=== PATIENT | female | born 1955 | race Caucasian/White ===

== ENCOUNTER → 2018-05-08 | Outpatient (CLI) | payer OTHER ==
[~2018-05-08] VITALS: Ht 172.7 cm; Wt 104.8 kg
[~2018-05-08] MED LIST: ALLEGRA ALLERG180 MG PO; AMBEREN; ASPIRIN81 M2 PO; BENICAR HCT 401 EACH; BIOTIN2500 MCG PO; CALCITRIOL0.5 MCG; CIPROFLOXACIN500 M1 PO; CITRACAL + D E1 EACH; CO Q-1010 MG PO; COZAAR 25 MG TA25 M2 PO; EPINEPHRIN0.3 MG/0.1 IM; IBUPROFEN 600600 M1 PO; LOSARTAN-HCTZ1 EAC2 PO; LUTEIN10 MG PO; MACRODANTIN50 MG PO; MULTI VITAMIN1 EACH PO; NEXIUM40 MG; OCUVITE LUTEIN1 EAC2 PO; PANTOPRAZOLE SO40 M1; PEPCID20 MG PO; PERCOCET 5-3251 EACH PO; PREDNISONE 10 M10 MG PO; PREMARIN0.3 MG; PROAIR HFA8.5 GM INH; VENTOLIN HFA 1818 GM INH; VITAMIN D 5050000 I1; ZOFRAN ODT4 MG PO; ZYRTEC10 M2 PO; [UNRECOGNIZED DRUG - OTHER] PO
--- NOTE | ~2018-05-08 | P ---
[facility] [place] [address] PROCEDURE REPORT Name: MIS JUNIOR [id number] Admission: 05/08/18 Attend Phys: Yonatan Acosta MD Discharge: Date of : 55 Report #: [id number] THIS REPORT FOR: //name// CC: Yonatan De Souza MD OUTPATIENT FLEXIBLE SIGMOIDOSCOPY REPORT BRIEF HISTORY: The patient is a 62-year-old woman with history of recurrent rectal bleeding. She had a colonoscopy in December this year. There was a question of colitis and biopsy revealed normal mucosa. She has had further rectal bleeding. CT showed some thickening of the sigmoid colon. She has noted increasing blood and mucus per rectum. SHE HAD A REACTION TO THE SULFITE and was placed on steroids and noted that her GI symptoms improved transiently. She has also had problems with constipation. PREOPERATIVE DIAGNOSES: Rectal bleeding and abnormal CT of the sigmoid colon with thickening. POSTOPERATIVE DIAGNOSES: 1. Multiple benign-appearing ulcers, rectum, anal verge. 2. Mild proctosigmoiditis. MEDICATIONS: Deep sedation with propofol per anesthesia. SPECIMENS: 1. Biopsies of sigmoid. 2. Biopsies of rectum. 3. Biopsies also of anal verge. ESTIMATED BLOOD LOSS: 3 mL. PROCEDURE: Flexible sigmoidoscopy to descending colon with biopsy. FINDINGS: Prior to propofol sedation, the procedure of flexible sigmoidoscopy was discussed with the patient as well as potential risks and its complications. She indicates she understands and desires to proceed. DESCRIPTION OF PROCEDURE: With the patient in the left lateral decubitus position, digital examination was completed, which revealed some irregularity of the anal canal. Subsequently, the Olympus video colonoscope was introduced through the rectum, advanced under direct vision. The prep was fair. However, we were able to see a good amount of mucosa in multiple areas, and therefore, we were able to achieve our objectives today. The scope was advanced into the descending colon and the mucosa in the descending colon was normal, with normal vascular pattern and normal light reflex. As we withdrew the scope, she was [facility] [address] [address] PROCEDURE REPORT Name: MIS JUNIOR MEDEROS Room #: REG KWADWO Weaver#: [id number] Admission: 05/08/18 Attend Phys: Yonatan Acosta MD Discharge: Date of : 55 Report #: [id number] noted to have loss of vascularity and patchy areas of erythema and occasional tiny erosions. Multiple biopsies were obtained. This pattern was somewhat more prominent in the rectum, but overall, the mucosa was intact. There was more erythema and loss of vascularity and again occasional erosion was seen. A discrete also was not seen. Also, might point out there were scattered diverticular sigmoid colon. Multiple rectal biopsies were obtained as well. The scope was withdrawn into the distal rectum and upon retroflexion, multiple stellate ulcers were seen, essentially at the anal verge. They had white exudate in the base and were clean. They had a benign appearance. Multiple biopsies were obtained. The scope was withdrawn and the patient tolerated the procedure well. CONDITION OF THE PATIENT UPON DISCHARGE: Following the procedure, the patient is drowsy, arousable and conversant. She will be discharged home when fully ambulatory. INSTRUCTIONS TO THE PATIENT AND FAMILY AT THE TIME OF DISCHARGE: Findings of proctosigmoiditis with ulcerations at the level of the anal verge. It is noted she had a colonoscopy in December of this year and ulcers were not present. Mucosa changes were noted, but biopsy revealed normal mucosa. We will follow up on biopsies obtained today. She had a recent reaction to mesalamine suppositories. Therefore, we will use hydrocortisone enemas and hydrocortisone suppositories. We will also give her Novocaine for pain. She has had some constipation and advised her to use MiraLax as needed for the constipation. We will have her return to see me in followup in the office in about 6 weeks. <ELECTRONICALLY SIGNED> By: Yonatan Acosta MD 05/09/18 1648 [id number] [id number] Yonatan Acosta MD /nt
--- NOTE | ~2018-05-08 | PATH ---
[facility] [place] [address] PATHOLOGY RPT PROCEDURE Name: ELMA DE LA VEGA Room #: REG KWADWO Anshu.#: [id number] Admission: 05/08/18 Date of : 55 Discharge: Report #: [id number] Path Case #: [id number] [facility] Accession Number: [id number] . 01 Material submitted: . PART A: BX OF SIGMOID COLON, RECTAL BLEEDING R/O COLITIS PART B: BX OF RECTUM, RECTAL BLEEDING R/O COLITIS PART C: BX OF ANAL VERGE ULCER . 01 Clinical history: . Rectal bleeding, rectal ulcers, Proctitis . 02 Diagnosis: A. Large intestinal mucosa, sigmoid colon rule out colitis, endoscopic biopsy: - Mild to moderate active colitis (please see comment). - Negative for dysplasia or malignancy. . B. Large intestinal mucosa, rectum rule out colitis, endoscopic biopsy: - Moderate active colitis. - Negative for dysplasia or malignancy. . C. Large intestinal mucosa, anal verge ulcers, endoscopic biopsy: - Marked active colitis associated with architectural abnormalities and ulceration (please see comment). - Negative for dysplasia or malignancy. LBQ/05/09/2018 . 02 Comment: The "sigmoid colon mucosal biopsy tissue shows a poorly formed collection of epithelioid histiocytes resembling granuloma. There is cryptitis present and the process involves all the fragments with a similar intensity in this biopsy tissue. The rectal biopsy tissue on the other hand shows numerous crypt abscesses, a markedly cellular lamina propria in addition to cryptitis. There are no granulomata present in this biopsy tissue. The anal verge ulcers show marked ulceration, cryptitis, architectural abnormalities in addition to the above findings described. Overall, findings may be suggestive of an inflammatory bowel disease. Other less likely possibilities include acute diverticulitis, acute infectious-type of colitis as well as drug induced colitis which would show diffuse involvement. Clinical correlation is required. There is no dysplasia or malignancy present. (IUV/db; 05/09/18) . 02 Electronically signed: . Latoya Sheldon MD, Pathologist NPI- [id number] [place] [address] PATHOLOGY RPT PROCEDURE Name: ELMA DE LA VEGA Room #: REG KWADWO Weaver#: [id number] Admission: 05/08/18 Date of : 55 Discharge: Report #: [id number] Path Case #: [id number] . 01 Gross description: . A.The specimen is received in formalin, labeled "Elma De La Vega, BX of sigmoid colon-bleeding rule out colitis", are several díaz soft tissues measuring 1.0 x 0.7 x 0.1 cm in aggregate, entirely submitted in A1. . B.The specimen is received in formalin, labeled "Elma De La Vega, BX of rectum, rectal bleeding, rule out colitis", are several díaz soft tissues are several díaz soft tissues measuring 1.0 x 0.4 x 0.1 cm in aggregate, entirely submitted in B1. . C.The specimen is received in formalin, labeled "Elma De La Vega, BX of ulcers at anal verge", are several díaz soft tissues measuring 1.0 x 0.4 x 0.1 cm in aggregate. The specimen is entirely submitted in C1. ([facility]; 05/08/2018) SHS/SHS . 02 Pathologist provided ICD-10: K52.9, K62.89, K62.6 . 02 CPT . 273014, 716530, 543434 Specimen Comment: A courtesy copy of this report has been sent to Specimen Comment: [phone], . Specimen Comment: Report sent to / DR JUAREZ Specimen Comment: A duplicate report has been generated due to demographic updates. Performed at: [address], [place], [place] [id number] MD Lincoln De Paz MD Phone: [phone] Performed at: [address] [id number] MD Latoya Sheldon MD Phone: [phone]
== END | disposition home or self-care (01) ==
LOC: GI 07:05
DX: K51.311 Ulcerative (chronic) rectosigmoiditis with rectal bleeding (principal); K52.9 Noninfective gastroenteritis and colitis, unspecified; K62.89 Other specified diseases of anus and rectum; I10 Essential (primary) hypertension; K21.9 Gastro-esophageal reflux disease without esophagitis; J45.909 Unspecified asthma, uncomplicated; Z90.710 Acquired absence of both cervix and uterus; Z90.49 Acquired absence of other specified parts of digestive tract; Z98.890 Other specified postprocedural states; Z79.899 Other long term (current) drug therapy; Z88.0 Allergy status to penicillin; Z91.040 Latex allergy status; Z88.8 Allergy status to other drugs, medicaments and biological substances
CPT/HCPCS: 62110; 62900

== ENCOUNTER 2018-11-06 09:01 | Inpatient (IN) | payer OTHER ==
[~2018-11-06] VITALS: Ht 172.7 cm; Wt 111.6 kg
[2018-11-06 09:02] VITALS: BP 125/77
[2018-11-06 09:23] LABS: ABSOLUTE NEUTROPHILS 6.5 thou/uL (1.4-8.2); BASOPHILS 0.3 % (0.0-2.0); EOSINOPHILS 1.2 % (0.0-3.0); HEMATOCRIT 41.5 % (37.0-47.0); HEMOGLOBIN 13.9 gm/dL (12.0-15.0); LYMPHOCYTES 13.8 % (24.0-44.0); MCH 30.3 pg (26.0-34.0); MCHC 33.6 g/dL (28.0-37.0); MCV 90.1 fL (80.0-100.0); MONOCYTES 7.5 % (1.0-8.0); PLATELET COUNT 261 thou/uL (150-400); POLYS 77.2 % (36.0-66.0); RDW 14.3 % (10.5-14.5); WBC 8.5 thou/uL (4.0-11.0)
[2018-11-06 10:01] LABS: CALCIUM 8.6 mg/dL (8.5-10.1); CREATININE 0.9 mg/dL (0.6-1.0); POTASSIUM 4.1 mmol/L (3.5-5.1)
[2018-11-06 10:03] LABS: ALBUMIN 3.8 g/dL (3.4-5.0); TOTAL BILIRUBIN 0.7 mg/dL (<0.1-1.0); TOTAL PROTEIN 7.4 g/dL (6.4-8.2)
[2018-11-06 10:46] LABS: URINE BILIRUBIN NEGATIVE (Negative); URINE BLOOD TRACE (Negative); URINE CLARITY CLEAR; URINE COLOR YELLOW; URINE GLUCOSE-RANDOM* NEGATIVE (Negative); URINE KETONES NEGATIVE (Negative); URINE LEUKOCYTES-REFLEX TRACE (Negative); URINE NITRITE-REFLEX NEGATIVE (Negative); URINE PROTEIN (DIPSTICK) NEGATIVE (Negative); URINE SPECIFIC GRAVITY 1.025 (1.005-1.035); URINE UROBILINOGEN 0.2 E.U./dl (0.2-1.0)
[2018-11-06 15:52] VITALS: BP 105/49
[2018-11-06 15:54] VITALS: BP 111/63
[2018-11-06 16:33] VITALS: BP 119/67
[2018-11-06 19:43] VITALS: BP 125/68
--- NOTE | 2018-11-07 00:49 | NUR ---
PT WAS LETHARGIC FROM MEDS RECEIVED FROM ER AT START OF SHIFT.FALL PRECAUTIONS ACTIVATED FOR PT'S SAFETY,PT INFORMED AND WAS IN AGREEMENT.ORDER NOTED FOR FLEX SIG IN THE MORNING,PT NOTIFIED.PT NPO AT THIS TIME,CONSENT SIGNED.PT DENIED PAIN/N/V SO FAR.PT SLEEPING ON HER BED AT THIS TIME.CALL LIGHT WITHIN REACH.
[2018-11-07 03:48] VITALS: BP 117/69
[2018-11-07 04:45] LABS: HEMATOCRIT 40.8 % (37.0-47.0); HEMOGLOBIN 13.7 gm/dL (12.0-15.0); MCH 30.6 pg (26.0-34.0); MCHC 33.5 g/dL (28.0-37.0); MCV 91.3 fL (80.0-100.0); RBC 4.47 mil/uL (4.20-5.00); RDW 14.2 % (10.5-14.5); WBC 7.8 thou/uL (4.0-11.0)
[2018-11-07 04:56] LABS: CALCIUM 8.4 mg/dL (8.5-10.1); CREATININE 0.7 mg/dL (0.6-1.0); POTASSIUM 4.7 mmol/L (3.5-5.1)
--- NOTE | 2018-11-07 10:01 | NUR ---
PT A&OX4, AMBULATES SELF IN ROOM, IV INFUSING FLUIDS IN R AC W/O COMPS, PT NPO SINCE MN FOR FLEX SIG PROCEDURE. DENIES ANY PAIN AT THIS TIME. WILL CONT POC.
--- NOTE | 2018-11-07 12:19 | NUR ---
PT ADMITTED RELATED TO LEFT FLANK PAIN, N/V, ABDOMINAL PAIN. CM REVIEWED CHART AND SPOKE WITH CARE TEAM. CM MET WITH PT AT BEDSIDE THIS DAY. PT IS A&O X4. CM ROLE INTRODCED. PT INDICATED SHE LIVES IN A HOUSE WITH HER SPOUSE WITH 2 STEPS TO ENTER AND 15 STEPS INSIDE. SHE INDICATED THEY HAVE A STAIR GLIDE BUT SHE HADN'T USED IT WOODWORKING BELT SANDER. PT INDICATED SHE HAD BEEN INDEPENDET WITH GAIT AND ADLS WOODWORKING BELT SANDER. PT INDICATED NO DME OR HH HX. PT INDICATED SHE ANTICPATES RETURNING HOME WITH NO NEEDS ONCE MEDICALLY STABLE. CM TO FOLLOW INDICATED WITH DC PLANNING.
--- NOTE | 2018-11-07 17:42 | NUR ---
PT RETURNED FROM FLEX SIG., A&OX4. REG DIET RESUMED PER DR. BLACK, IV CONT. FLUIDS AND IVAB RESTARTED. PT WILL TRANSFER TO SENIOR SUITES.
[2018-11-07 18:20] VITALS: BP 152/63
--- NOTE | 2018-11-07 18:31 | NUR ---
PATIENT TRANSFERRED TO UNIT 1809. VS TAKEN AND PATIENT SETTLED IN BED.
[2018-11-07 20:12] VITALS: BP 152/63
--- NOTE | 2018-11-08 04:25 | NUR ---
ASSUMED CARE OF PATIENT AT 1899. VSS. ORDER RECEIVED FROM RYAN MARTIN FOR BENADRYL 25MG IVP NOW D/T PT C/O FACIAL FLUSHING AND ERYTHEMA ON UPPER BODY. PT BELIEVED THIS ALLERGIC REACTION WAS D/T THE DINNER SHE ATE. IV BENADRYL GIVEN AND SYMPTOMS RESOLVED. ASSESSMENT COMPLETED AT 2035 AND IS DOCUMENTED. PT UP AD CYNDEE. RIGHT AC IV PATENT WITH NS @ 75 ML/HR. IVPB CIPROFLOXACIN AND METRONIDAZOLE GIVEN WITHOUT COMPLICATION. PT DENIES PAIN THIS SHIFT. PT CURRENTLY SLEEPING SOUNDLY IN BED IN NO ACUTE DISTRESS. BED LOCKED AND IN LOWEST POSITION. CALL LIGHT WITHIN REACH. TM.
--- NOTE | 2018-11-08 05:00 | NUR ---
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
[2018-11-08 08:05] VITALS: BP 120/69
--- NOTE | 2018-11-08 10:23 | NUR ---
PT A&OX4, IV INTACT IN R AC IFUSING FLUIDS W/O COMPS, AMBULATES SELF. DENIES NAUSEA OR FLANK PAIN. PT HAD A ALLERGIC REACTION TO WHAT SHE BELEIVES WAS MSG. BENADRYL IV WAS GIVEN LAST NOC, PT STILL HAS PINKISH COLOR TO FACE AND NECK. PLANS ARE FOR PT TO DC TODAY.
[2018-11-08 11:05] VITALS: BP 120/69
--- NOTE | 2018-11-08 13:03 | NUR ---
DC ORDERS RECEIVED. F/U APPOINTMENT AND DC INSTRUCTIONS REVIEWED WITH PT. IV REMOVED FROM R AC, PT WHEELED TO MAIN ENTRANCE.
--- NOTE | 2018-11-10 17:06 | PATH ---
[facility] [place] [address] [address] [place] [address] PATHOLOGY RPT PROCEDURE Name: ELMA DE LA VEGA Room #: 221-P DIS IN M.R.#: [id number] ������������������ Admission: 11/06/18 ������������������ Date of : 55 Discharge: 11/08/18 Report #: [id number] Path Case #: [id number] [facility] Accession Number: [id number] . 01 Material submitted: . PART A: colon - RANDOM BX L) COLON BF-C R/O IBD AND INFECTIOUS COLITIS. Modifiers: left PART B: rectum - BX POLYP AT RECTUM BF-C . 01 Clinical history: . Pre-OP DX: Rectal bleeding, abdominal pain, abnormal CT Post-OP DX: Rectal polyp, colitis . 02 Diagnosis: A. Large intestine mucosa, random left colon, endoscopic biopsy: - Mild to moderate active colitis with cryptitis and crypt abscess formation (please see comment). - Negative for dysplasia or malignancy. . B. Polyp, at rectum, endoscopic biopsy: - Tubular adenoma. - Negative for high-grade dysplasia. . (IUV:marcella; 11/10/2018) MBR/11/10/2018 . 02 Comment: Examination shows cryptitis and crypt abscess formation in scattered crypts. Few fragments sampled appear almost uninvolved. Other fragments show subtle architectural abnormalities as well as a rare poorly-formed granuloma. Surface ulceration or surface epithelial denudation or marked acute surface epithelial inflammation are not identified. Features are suggestive of acute/active colitis. An early inflammatory bowel disease, especially Crohn's disease cannot be excluded. Although infectious-type colitis, acute diverticulitis, and medication-induced colitis enter the differential diagnosis, these are not favored due to the morphologic features described. Please correlate clinically and followup as indicated. (IUV:zigzagger; 11/10/2018) . 02 Electronically signed: . Latoya Sheldon MD, Pathologist NPI- [id number] . 01 Gross description: . A. Received in formalin labeled "Elma De La Vgea, random BX left colon, rule out IBP, infectious colitis," are multiple segments of díaz soft tissue measuring 2.1 x 0.5 x 0.2 cm in aggregate dimensions. The specimen is [facility] [address] [place] [address] PATHOLOGY RPT PROCEDURE Name: ELMA DE LA VEGA Room #: 221-P DIS IN M.R.#: [id number] ������������������ Admission: 11/06/18 ������������������ Date of : 55 Discharge: 11/08/18 Report #: [id number] Path Case #: [id number] filtered and entirely submitted in cassette A1. . B. Received in formalin labeled "Elma De La Vega, BX polyp at rectum," is a single segment of díaz soft tissue measuring 0.6 cm in maximum dimension. The specimen is entirely submitted in cassette B1. ([facility]; 11/07/2018) TOB/TOB . 02 Pathologist provided ICD-10: K52.9, D12.8 . 02 CPT . 453232, 655658 Specimen Comment: A courtesy copy of this report has been sent to Specimen Comment: [phone], , . Specimen Comment: Report sent to ,DR HERZOG / DR JUAREZ Performed at: [address], [place] [id number] MD Lincoln De Paz MD Phone: [phone] Performed at: [address] [id number] MD Latoya Sheldon MD Phone: [phone]
== END 2018-11-08 13:00 | disposition home or self-care (01) | DRG 392 ==
LOC: ER 09:01 → 4E 14:21 → EROBS 14:21 → 4E 15:59 → SICU 11-07 18:20
PROVIDERS: Emergency Medicine; ADMIT Hospitalist
DX: K52.9 Noninfective gastroenteritis and colitis, unspecified (principal); K62.5 Hemorrhage of anus and rectum; I10 Essential (primary) hypertension; J45.909 Unspecified asthma, uncomplicated; K21.9 Gastro-esophageal reflux disease without esophagitis; K62.1 Rectal polyp; R31.9 Hematuria, unspecified; E66.9 Obesity, unspecified; Z68.37 Body mass index [BMI] 37.0-37.9, adult; Z90.49 Acquired absence of other specified parts of digestive tract; Z90.710 Acquired absence of both cervix and uterus; Z86.010 Personal history of colon polyps; Z98.891 History of uterine scar from previous surgery; Z79.899 Other long term (current) drug therapy; Z88.5 Allergy status to narcotic agent; Z88.0 Allergy status to penicillin; Z88.2 Allergy status to sulfonamides; Z88.8 Allergy status to other drugs, medicaments and biological substances; Z88.1 Allergy status to other antibiotic agents; Z91.040 Latex allergy status
CPT/HCPCS: 10084; 10183; 15002; 62110; 62900; 70005

== ENCOUNTER 2019-08-19 12:15 | Day surgery (SDC) | payer BC, OTHER ==
[~2019-08-19] VITALS: Ht 172.7 cm; Wt 113.4 kg
--- NOTE | ~2019-08-19 | O ---
[facility] [place] [address] [place] [address] OPERATIVE REPORT Name: MIS JUNIOR Room #: 150-4 [facility] M.R.#: [id number] Admission: 08/19/19 Attend Phys: Erick Sommer MD Discharge: Date of : 55 Report #: [id number] THIS REPORT FOR: //name// CC: Erick Randolph [facility] DATE OF SERVICE: 08/19/2019 PREOPERATIVE DIAGNOSIS: Right foot Lisfranc fracture dislocation. POSTOPERATIVE DIAGNOSIS: Right foot Lisfranc fracture dislocation. PROCEDURE: Right foot Lisfranc percutaneous screw fixation. SURGEON: Erick Sommer M.D. DIRECTOR PLANS: None. ANESTHESIA: General. ESTIMATED BLOOD LOSS: Minimal. DRAINS: No drains. TOURNIQUET TIME: 10 minutes. DESCRIPTION OF PROCEDURE: The patient brought to the operating room where she was placed under general anesthesia. Once under adequate general anesthesia, her right lower extremity was prepped and draped in sterile manner. The extremity was elevated, exsanguinated, tourniquet placed 300 mmHg. Utilizing fluoroscopy for guidance, a bone reduction tenaculum was then placed across the Lisfranc joint from the lateral proximal second metatarsal to the medial cuneiform. A reduction was then achieved utilizing the reduction tenaculum and subsequent to this, a single 4.0 cannulated screw was placed across the Lisfranc joint. Utilizing fluoroscopy for guidance, a 34 mm screw was then placed across the joint after drilling for the cannulated screw. Once the screw was then placed, excellent fixation and alignment was achieved as verified under fluoroscopy. The wound was then irrigated copiously and closed with erlinda for the skin. The wounds were dressed with Xeroform, 4 x 4s, and a sterile soft compressive dressing was placed. Tourniquet was let down at approximately 10 minutes. Toes were pink and warm with good capillary refill. There were no [facility] [address] [place] [address] OPERATIVE REPORT Name: MIS JUNIOR Room #: 150-4 REG [facility]#: [id number] Admission: 08/19/19 Attend Phys: Erick Sommer MD Discharge: Date of : 55 Report #: [id number] complications from the procedure. The patient tolerated the procedure well and went to recovery room without incident. By: 1555 [id number] Erick Sommer MD /nt
[~2019-08-19 12:15] MED LIST changes: +APRISO0.375 GM PO; +COZAAR100 MG PO; +FISH OIL 1,0001 EAC9 PO; +HYDROCHLOROTH12.5 M1 PO; +IBUPROFEN 400400 M2 PO; +PROTONIX40 M2 PO; +TRAMADOL 50 MG50 MG PO
[2019-08-19 13:24] LABS: CALCIUM 9.5 mg/dL (8.5-10.1); CREATININE 0.9 mg/dL (0.6-1.0); POTASSIUM 3.8 mmol/L (3.5-5.1)
[2019-08-19 14:11] VITALS: BP 132/70
[2019-08-19] MEDS ORDERED: PERCOCET 7.5-31 EACH PO (15:51)
[2019-08-19 16:24] VITALS: BP 132/70
--- NOTE | 2019-08-20 08:31 | EKG ---
[facility] [employer] 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: rajiv : 1955 Requested By: Erick Sommer Order Number: [id number] MD: Mello Irving Measurements Intervals [place] Rate: 69 P: 14 WA: 154 QRS: 19 QRSD: 96 T: -21 QT: 557 QTc: 597 Interpretive Statements Sinus rhythm Nonspecific ST and T wave abnormality Prolonged QT interval Baseline wander in lead(s) V3 No previous ECG available for comparison Electronically Signed On 08-20-2019 8:30:36 BACK PADDER by Mello Irving [email or web address] <ELECTRONICALLY SIGNED> By: Mello Irving MD, [facility] 08/20/1930 1252 125 Mello Irving MD, [facility] /EPI
== END 2019-08-19 17:15 | disposition home or self-care (01) ==
LOC: OR 12:15 → TBA 12:28 → OR 17:15
PROVIDERS: Orthopaedic Surgery Foot and Ankle Surgery
DX: S93.324A Dislocation of tarsometatarsal joint of right foot, initial encounter (principal); I10 Essential (primary) hypertension; K21.9 Gastro-esophageal reflux disease without esophagitis; J45.909 Unspecified asthma, uncomplicated; Z98.890 Other specified postprocedural states; Z79.899 Other long term (current) drug therapy; Z90.49 Acquired absence of other specified parts of digestive tract; Z90.710 Acquired absence of both cervix and uterus; Z87.19 Personal history of other diseases of the digestive system; Z91.040 Latex allergy status; Z88.0 Allergy status to penicillin; Z88.6 Allergy status to analgesic agent; Z88.8 Allergy status to other drugs, medicaments and biological substances; X58.XXXA Exposure to other specified factors, initial encounter; Y93.89 Activity, other specified; Y92.89 Other specified places as the place of occurrence of the external cause; Y99.8 Other external cause status
CPT/HCPCS: 50010; 50101; 50386; 51412; 56526; 56667; 57091; 57180; 62110; 62900; 70005

== ENCOUNTER → 2020-03-14 | Outpatient (CLI) | payer BC, OTHER ==
[~2020-03-14] MED LIST changes: +PERCOCET 7.5-31 EACH PO
== END ==
LOC: SJCVCIMAG 08:22
PROVIDERS: ATTEND Internal Medicine
DX: I07.1 Rheumatic tricuspid insufficiency (principal); J44.9 Chronic obstructive pulmonary disease, unspecified; I25.10 Atherosclerotic heart disease of native coronary artery without angina pectoris; E66.9 Obesity, unspecified

== ENCOUNTER → 2020-11-30 | Outpatient (CLI) | payer BC, OTHER | LOC: SJCVC 16:17 | PROVIDERS: ATTEND Internal Medicine | DX: R94.31 Abnormal electrocardiogram [ECG] [EKG] (principal); R60.9 Edema, unspecified; I10 Essential (primary) hypertension; K51.919 Ulcerative colitis, unspecified with unspecified complications; E78.00 Pure hypercholesterolemia, unspecified; R06.83 Snoring; J45.909 Unspecified asthma, uncomplicated; G47.33 Obstructive sleep apnea (adult) (pediatric); Z90.49 Acquired absence of other specified parts of digestive tract; Z90.710 Acquired absence of both cervix and uterus; Z98.890 Other specified postprocedural states; Z88.8 Allergy status to other drugs, medicaments and biological substances; Z88.0 Allergy status to penicillin; Z79.899 Other long term (current) drug therapy; Z82.49 Family history of ischemic heart disease and other diseases of the circulatory system ==

== ENCOUNTER → 2021-05-31 | Outpatient (CLI) | payer OTHER | LOC: SJCVC 15:32 | PROVIDERS: ATTEND Internal Medicine | DX: R94.31 Abnormal electrocardiogram [ECG] [EKG] (principal); R60.9 Edema, unspecified; I10 Essential (primary) hypertension; K51.919 Ulcerative colitis, unspecified with unspecified complications; E78.00 Pure hypercholesterolemia, unspecified; R06.83 Snoring; G47.33 Obstructive sleep apnea (adult) (pediatric); M85.88 Other specified disorders of bone density and structure, other site; Z72.89 Other problems related to lifestyle; Z79.899 Other long term (current) drug therapy; Z88.2 Allergy status to sulfonamides; Z88.5 Allergy status to narcotic agent; Z91.013 Allergy to seafood; Z88.8 Allergy status to other drugs, medicaments and biological substances ==